=== PATIENT | male | born 1995 | race Caucasian/White ===

== ENCOUNTER 2022-09-07 23:10 | Emergency (ER) | payer OTHER ==
[~2022-09-07] VITALS: Ht 188 cm; Wt 72.6 kg
== END 2022-09-08 05:36 | disposition home or self-care (01) ==
LOC: ER 23:10
DX: F11.23 Opioid dependence with withdrawal (principal); M79.18 Myalgia, other site; F17.210 Nicotine dependence, cigarettes, uncomplicated
CPT/HCPCS: 96372; 99284; A9270; J1885